=== PATIENT | female | born 1960 | race African-American/Black ===

== ENCOUNTER 2018-06-25 10:39 | Emergency (ER) | payer BC ==
[~2018-06-25] VITALS: Ht 165.1 cm; Wt 85.3 kg
[~2018-06-25 10:39] MED LIST: APAP650 PO; ASPIRIN EC81 M1 PO; CALCIUM 500+D1 EAC2 PO; CALCIUM CITRAT1 EA14 PO; CARDIZEM CD240 MG PO; COSAMIN DS TAB1 EACH PO; GLUCOSAMINE1000 MG PO; IRON325 PO; LISINOPRIL-HCT1 EAC2 PO; MULTIVITAMINS PO; NORCO 5-325 TA1 EACH PO; NORFLEX100 MG PO; PROTONIX40 M1 PO; RYTHMOL150 MG PO; TRAMADOL 50 MG50 MG PO; VITAMINC500 PO
[2018-06-25] MEDS ORDERED: DOXYCYCLINE 10100 MG PO (11:45)
[2018-06-25] MEDS ORDERED: OSELB75 PO (11:45)
[2018-06-25 12:01] VITALS: BP 120/62
== END 2018-06-25 12:03 | disposition home or self-care (01) ==
LOC: ER 10:39
DX: J18.9 Pneumonia, unspecified organism (principal); J11.1 Influenza due to unidentified influenza virus with other respiratory manifestations; I10 Essential (primary) hypertension; I48.91 Unspecified atrial fibrillation; M19.90 Unspecified osteoarthritis, unspecified site; Z88.2 Allergy status to sulfonamides; Z88.5 Allergy status to narcotic agent; Z87.891 Personal history of nicotine dependence

== ENCOUNTER 2018-10-18 18:38 | Emergency (ER) | payer BC ==
[~2018-10-18] VITALS: Ht 170.2 cm; Wt 85.3 kg
[~2018-10-18 18:38] MED LIST changes: +DOXYCYCLINE 10100 MG PO; +OSELB75 PO
[2018-10-18 20:06] LABS: ABSOLUTE NEUTROPHILS 3.3 thou/uL (1.4-8.2); BASOPHILS 0.9 % (0.0-2.0); EOSINOPHILS 1.3 % (0.0-3.0); HEMATOCRIT 37.9 % (37.0-47.0); HEMOGLOBIN 12.5 gm/dL (12.0-15.0); LYMPHOCYTES 45.7 % (24.0-44.0); MCH 27.6 pg (26.0-34.0); MCV 83.7 fL (80.0-100.0); MONOCYTES 6.2 % (1.0-8.0); PLATELET COUNT 368 thou/uL (150-400); POLYS 45.9 % (36.0-66.0); RBC 4.52 mil/uL (4.20-5.00); RDW 13.7 % (10.5-14.5); WBC 7.1 thou/uL (4.0-11.0)
[2018-10-18 20:14] LABS: ANION GAP 9 mmol/L (7-16); BUN 12 mg/dL (7-18); CALCIUM 9.7 mg/dL (8.5-10.1); CHLORIDE 101 mmol/L (98-107); CO2 29 mmol/L (21-32); CREATININE 0.7 mg/dL (0.6-1.0); GLUCOSE 120 mg/dL (74-106); SODIUM 139 mmol/L (136-145)
[2018-10-18 20:23] LABS: ALBUMIN 4.1 g/dL (3.4-5.0); MAGNESIUM 1.9 mg/dL (1.8-2.4); SGOT 21 U/L (15-37); SGPT 40 U/L (30-65); TOTAL BILIRUBIN 0.2 mg/dL (<0.1-1.0); TROPONIN-I <0.06 ng/mL (<0.06)
[2018-10-18] MEDS ORDERED: ROBAXIN 750 MG750 MG PO (21:11)
[2018-10-18 21:20] VITALS: BP 135/65
[2018-10-18] MEDS ORDERED: ATENOLOL-CHLOR1 EACH PO (21:20)
--- NOTE | 2018-10-19 09:20 | EKG ---
[address] [address] ELECTROCARDIOGRAM REPORT Name: SANTIAGO GRAY [facility] [id number] ������������������ Admission: 10/18/18 ������������������ Attend Phys: Discharge: 10/18/18 ������������������ Date of : 60 Report #: [id number] ����������������������������������������������������������������� [id number] THIS REPORT FOR: //name// [facility] ED Test Date: 2018-10-18 Test Time: 18:53:21 Pat Name: SANTIAGO SLADE Department: Room: Gender: F [employer]riter Operator: TSTOR : 1960 Requested By: Kaz Barkley Order Number: [id number] MD: Adrian Manuel Measurements Intervals [place] Rate: 84 P: 39 AK: 134 QRS: 23 QRSD: 88 T: 22 QT: 365 QTc: 432 Interpretive Statements Sinus rhythm No significant abnormality Compared to ECG 11/11/2011 06:32:14 No significant changes Electronically Signed On 10-19-2018 9:20:16 CDT by Adrian Manuel [email or web address] ��������������������������������������������� <ELECTRONICALLY SIGNED> ���������������������������������������� By: Adrian Manuel MD, [facility] ��������������������������������������������� 10/19/18 0920 1853 52 Adrian Manuel MD, FACC /EPI
== END 2018-10-18 21:25 | disposition home or self-care (01) ==
LOC: ER 18:38
PROVIDERS: Emergency Medicine
DX: M79.601 Pain in right arm (principal); I10 Essential (primary) hypertension; I48.91 Unspecified atrial fibrillation; M19.90 Unspecified osteoarthritis, unspecified site; Z88.2 Allergy status to sulfonamides; Z87.891 Personal history of nicotine dependence

== ENCOUNTER 2019-12-16 11:26 | Emergency (ER) | payer BC ==
[~2019-12-16] VITALS: Ht 162.6 cm; Wt 83.0 kg
[~2019-12-16 11:26] MED LIST changes: +ATENOLOL-CHLOR1 EACH PO; +ROBAXIN 750 MG750 MG PO
[2019-12-16] MEDS ORDERED: KLOR-CON M2020 MEQ PO (11:29)
[2019-12-16] MEDS ORDERED: TOPROL XL100 MG PO (11:29)
[2019-12-16] MEDS ORDERED: PRINIVIL20 M1 PO (11:30)
[2019-12-16] MEDS ORDERED: TORSEMIDE100 MG PO (11:30)
[2019-12-16] MEDS ORDERED: PROTONIX40 M3 PO (11:31)
[2019-12-16] MEDS ORDERED: HYDROCODON-ACE1 EAC7 PO (14:38)
[2019-12-16] MEDS ORDERED: VOLTAREN GEL 1100 G1 TOP (14:38)
[2019-12-16] MEDS ORDERED: NORFLEX100 MG PO (14:38)
[2019-12-16] MEDS ORDERED: VALIUM5 MG PO (14:38)
[2019-12-16 14:47] VITALS: BP 105/61
== END 2019-12-16 14:49 | disposition home or self-care (01) ==
LOC: ER 11:26
DX: M43.6 Torticollis (principal); I10 Essential (primary) hypertension; I48.91 Unspecified atrial fibrillation; Z79.82 Long term (current) use of aspirin; Z79.899 Other long term (current) drug therapy; Z87.891 Personal history of nicotine dependence; Z88.2 Allergy status to sulfonamides

== ENCOUNTER 2020-01-08 09:27 | Emergency (ER) | payer BC ==
[~2020-01-08] VITALS: Ht 162.6 cm; Wt 85.3 kg
[~2020-01-08 09:27] MED LIST changes: +HYDROCODON-ACE1 EAC7 PO; +KLOR-CON M2020 MEQ PO; +PRINIVIL20 M1 PO; +PROTONIX40 M3 PO; +TOPROL XL100 MG PO; +TORSEMIDE100 MG PO; +VALIUM5 MG PO; +VOLTAREN GEL 1100 G1 TOP
[2020-01-08 10:11] LABS: URINE BILIRUBIN NEGATIVE (Negative); URINE BLOOD NEGATIVE (Negative); URINE CLARITY CLEAR; URINE COLOR YELLOW; URINE GLUCOSE-RANDOM* NEGATIVE (Negative); URINE KETONES NEGATIVE (Negative); URINE LEUKOCYTES-REFLEX NEGATIVE (Negative); URINE NITRITE-REFLEX NEGATIVE (Negative); URINE PROTEIN (DIPSTICK) NEGATIVE (Negative); URINE UROBILINOGEN 0.2 E.U./dl (0.2-1.0)
[2020-01-08 11:36] LABS: ABSOLUTE NEUTROPHILS 5.3 thou/uL (1.4-8.2); BASOPHILS 0.8 % (0.0-2.0); HEMATOCRIT 36.9 % (37.0-47.0); HEMOGLOBIN 12.2 gm/dL (12.0-15.0); LYMPHOCYTES 34.1 % (24.0-44.0); MCH 27.9 pg (26.0-34.0); MCV 84.5 fL (80.0-100.0); MONOCYTES 7.6 % (1.0-8.0); PLATELET COUNT 400 thou/uL (150-400); POLYS 56.5 % (36.0-66.0); RBC 4.37 mil/uL (4.20-5.00); RDW 13.1 % (10.5-14.5); WBC 9.3 thou/uL (4.0-11.0)
[2020-01-08 11:49] LABS: ANION GAP 11 mmol/L (7-16); BUN 11 mg/dL (7-18); CALCIUM 9.5 mg/dL (8.5-10.1); CHLORIDE 102 mmol/L (98-107); CO2 28 mmol/L (21-32); CREATININE 0.7 mg/dL (0.6-1.0); GLUCOSE 126 mg/dL (74-106); POTASSIUM 4.3 mmol/L (3.5-5.1); SODIUM 141 mmol/L (136-145)
[2020-01-08 11:55] LABS: ALBUMIN 4.1 g/dL (3.4-5.0); DIRECT BILIRUBIN < 0.1 mg/dL (<0.1-0.2); SGOT 29 U/L (15-37); SGPT 40 U/L (30-65); TOTAL BILIRUBIN 0.3 mg/dL (0.2-1.0); TOTAL PROTEIN 8.9 g/dL (6.4-8.2)
[2020-01-08] MEDS ORDERED: NORCO 5-325 TA1 EAC2 PO (13:05)
[2020-01-08 13:20] VITALS: BP 123/68
== END 2020-01-08 13:20 | disposition home or self-care (01) ==
LOC: ER 09:27
PROVIDERS: Emergency Medicine
DX: R10.11 Right upper quadrant pain (principal); M54.5 Low back pain; I10 Essential (primary) hypertension; I48.91 Unspecified atrial fibrillation; Z79.82 Long term (current) use of aspirin; Z79.899 Other long term (current) drug therapy; Z87.891 Personal history of nicotine dependence; Z88.2 Allergy status to sulfonamides

== ENCOUNTER 2020-01-16 16:15 | Emergency (ER) | payer BC ==
[~2020-01-16] VITALS: Ht 162.6 cm; Wt 85.3 kg
[~2020-01-16 16:15] MED LIST changes: +NORCO 5-325 TA1 EAC2 PO
[2020-01-16 20:31] LABS: URINE BILIRUBIN NEGATIVE (Negative); URINE BLOOD NEGATIVE (Negative); URINE CLARITY CLEAR; URINE COLOR YELLOW; URINE GLUCOSE-RANDOM* NEGATIVE (Negative); URINE KETONES NEGATIVE (Negative); URINE NITRITE-REFLEX NEGATIVE (Negative); URINE PROTEIN (DIPSTICK) NEGATIVE (Negative); URINE SPECIFIC GRAVITY 1.015 (1.005-1.035); URINE UROBILINOGEN 0.2 E.U./dl (0.2-1.0)
[2020-01-16 20:32] LABS: URINE LEUKOCYTES-REFLEX 1+ (Negative)
[2020-01-16] MEDS ORDERED: ULTRAM 50MG TAB50 MG PO (20:35)
[2020-01-16 20:58] LABS: BACTERIA-REFLEX 1-9 Few /HPF (None Seen); CRYSTALS None Seen /LPF (None Seen); MUCUS 4-6 Moderate strn/LPF (None Seen); SQUAMOUS 4-10 Moderate /LPF (0-3); URINE RBC 0-2 Rare /HPF (0-2); URINE WBC-REFLEX 6-15 Few /HPF (0-5)
[2020-01-16 20:59] LABS: HYALINE CASTS 0-3 Few /LPF (None Seen)
[2020-01-16] MEDS ORDERED: KEFLEX500 M1 PO (21:02)
[2020-01-16 21:22] VITALS: BP 135/74
== END 2020-01-16 21:22 | disposition home or self-care (01) ==
LOC: ER 16:15
PROVIDERS: Nurse Practitioner
DX: S39.012A Strain of muscle, fascia and tendon of lower back, initial encounter (principal); I10 Essential (primary) hypertension; I48.91 Unspecified atrial fibrillation; Z79.899 Other long term (current) drug therapy; Z87.891 Personal history of nicotine dependence; Z88.2 Allergy status to sulfonamides; Z79.82 Long term (current) use of aspirin; X58.XXXA Exposure to other specified factors, initial encounter; Y93.89 Activity, other specified; Y92.89 Other specified places as the place of occurrence of the external cause; Y99.8 Other external cause status

== ENCOUNTER 2020-04-13 05:25 | Emergency (ER) | payer BC ==
[~2020-04-13] VITALS: Ht 162.6 cm; Wt 73.5 kg
[~2020-04-13 05:25] MED LIST changes: +KEFLEX500 M1 PO; +ULTRAM 50MG TAB50 MG PO
[2020-04-13] MEDS ORDERED: MACRODANTIN100 MG PO (05:48)
[2020-04-13] MEDS ORDERED: LIDODERM1 EACH TOP (08:05)
[2020-04-13 08:18] VITALS: BP 122/78
== END 2020-04-13 08:18 | disposition home or self-care (01) ==
LOC: ER 05:25
DX: M54.2 Cervicalgia (principal); I10 Essential (primary) hypertension; I48.91 Unspecified atrial fibrillation; Z79.899 Other long term (current) drug therapy; Z87.891 Personal history of nicotine dependence; Z79.82 Long term (current) use of aspirin; Z88.2 Allergy status to sulfonamides; Z88.8 Allergy status to other drugs, medicaments and biological substances

== ENCOUNTER → 2020-08-04 | Outpatient (CLI) | payer BC ==
[~2020-08-04] MED LIST changes: +LIDODERM1 EACH TOP; +MACRODANTIN100 MG PO
== END ==
LOC: LAB 12:34
PROVIDERS: ATTEND Anesthesiology
DX: Z01.812 Encounter for preprocedural laboratory examination (principal); Z20.822 Contact with and (suspected) exposure to COVID-19